=== PATIENT | male | born 1970 | race Caucasian/White ===

== ENCOUNTER 2022-08-07 06:19 | Day surgery (SDC) | payer BC ==
[2022-08-05 12:02] VITALS: BMI 31.5
[2022-08-07] MEDS ORDERED: MIDAZOLAM HCL 2 MG/2 ML SINGLE DOSE VIAL ONE (07:58)
[2022-08-07] MEDS ORDERED: BUPIVACAINE HCL/PF 0.25% (2.5MG/ML) 10 ML VIAL ONE (08:26)
[2022-08-07] MEDS ORDERED: PROPOFOL 20 ML ONE (08:35)
[2022-08-07] MEDS ORDERED: GUM MASTIC/STORAX/MSAL/ALCOHOL 1 DRP DROPSBTL MC ONE (08:35)
[2022-08-07] MEDS ORDERED: DEXAMETHASONE SOD PHOSPHATE 4 MG/1 ML VIAL ONE (08:40)
[2022-08-07] MEDS ORDERED: ONDANSETRON 4 MG/2 ML VIAL ONE (08:40)
[2022-08-07] MEDS ORDERED: BUPIVACAINE HCL/PF 0.25% (2.5MG/ML) 10 ML VIAL STI ONE (09:00)
[2022-08-07] MEDS ORDERED: LIDOCAINE HCL 2% (20ML MULTI-DOSE VIAL) ONE (09:29)
[2022-08-07 10:17] VITALS: RESP 18; TEMP 97.8
[2022-08-07 10:52] VITALS: BP 120/75; PULSE 79
== END 2022-08-07 10:25 | disposition home or self-care (01) ==
LOC: FASU 06:19
PROVIDERS: ATTEND Orthopaedic Surgery Hand Surgery
PROC: 01N54ZZ Release Median Nerve, Percutaneous Endoscopic Approach (ICD-10-PCS; principal; 2022-08-07 08:48)
DX: G56.01 Carpal tunnel syndrome, right upper limb (principal)
CPT/HCPCS: 94760